=== PATIENT | female | born 1940 | race Caucasian/White ===

== ENCOUNTER 2018-03-12 20:39 | Inpatient (IN) | payer MEDICARE, OTHER ==
[~2018-03-12] VITALS: Ht 152.4 cm; Wt 80.1 kg
[2018-03-12] MEDS ORDERED: LEVOFLOXACIN 750MG 150 ML IV ONE (22:15)
[2018-03-12] MEDS ORDERED: methylPREDNISolone SOD SUCC 125 MG/2 ML VL IV ONE (22:15)
[2018-03-12] MEDS ORDERED: ALBUTEROL SULF 2.5 MG/0.5ML(0.5%) NEB SOLN NEB ONE (22:15)
[2018-03-12] MEDS ORDERED: IPRATROPIUM BROM 0.5 MG/2.5ML INH SOL NEB ONE (22:15)
[2018-03-12 22:36] LABS: Basophils # (auto) 0 uL; Basophils % (auto) 0.4 % (0.0-2.0); Eosinophils # (auto) 0.3 uL; Eosinophils % (auto) 4.1 % (0.0-7.0); Hematocrit 43.1 % (36.0-46.0); Hemoglobin 14.7 g/dL (12.2-16.2); Lymphocytes # (auto) 0.8 uL; Lymphocytes % (auto) 11.1 % (10.0-50.0); Mean Corpuscular Hemoglobin 32.8 pg (28.0-32.0); Mean Corpuscular Hgb Conc. 34.1 g/dL (32.0-36.0); Monocytes # (auto) 0.6 uL; Monocytes % (auto) 8.2 % (0.0-12.0); Neutrophils # (auto) 5.6 uL; Neutrophils % (auto) 76.2 % (37.0-80.0); Platelet Count (auto) 235 10^3/uL (140-450); Red Blood Cells 4.49 10^6/uL (4.0-5.20); Red Cell Distribution Width 13.3 % (11.8-14.3); White Blood Cell 7.3 10^3/uL (4.4-10.8)
[2018-03-12 22:41] LABS: INR 0.98 (0.9-1.15); Partial Thromboplastin Time 25.4 sec (22.64-33.71); Prothrombin Time 10.7 sec (9.37-12.3)
[2018-03-12 22:50] LABS: Alanine Aminotransferase 39 U/L (13-56); Albumin 3.9 g/dL (3.4-5.0); Alkaline Phosphatase 93 U/L (45-117); Anion Gap 14 (5-15); Aspartate Aminotransferase 29 U/L (15-37); BUN/Creatinine Ratio 10.9; Bilirubin, Total 0.2 mg/dL (0.2-1.0); Blood Urea Nitrogen 11 mg/dL (7-18); Carbon Dioxide 24 mmol/L (21-32); Chloride 105 mmol/L (98-107); GFR African American 69 mL/min; GFR Non-African American 57 mL/min; Glucose 148 mg/dL (74-106); Magnesium 2.4 mg/dL (1.6-2.6); Potassium 3.2 mmol/L (3.5-5.1); Sodium 143 mmol/L (136-145); Total Protein 7.6 g/dL (6.4-8.2)
[2018-03-12] MEDS ORDERED: ACETAMINOPHEN 325 MG TAB PO ONE (23:15)
[2018-03-13] VITALS (7 sets, daily range): BP systolic 97–121; BP diastolic 52–72
[2018-03-13] MEDS ORDERED: IPRATROPIUM BROM 0.5 MG/2.5ML INH SOL NEB ONE ×2 (02:15→02:30)
[2018-03-13] MEDS ORDERED: ALBUTEROL SULF 2.5 MG/0.5ML(0.5%) NEB SOLN NEB ONE ×2 (02:15→02:30)
[2018-03-13] MEDS ORDERED: FUROSEMIDE 20 MG/2 ML VIAL IV ONE (03:00)
[2018-03-13] MEDS ORDERED: MORPHINE SULFATE 4 MG/ML SYR/VIAL IV PRN (04:45)
[2018-03-13] MEDS ORDERED: NITROGLYCERIN 0.4 MG SL TAB SL PRN (04:45)
[2018-03-13] MEDS ORDERED: ONDANSETRON HCL 4 MG/2 ML VIAL IV PRN (04:45)
[2018-03-13] MEDS ORDERED: ACETAMINOPHEN 325 MG TAB PO PRN (04:45)
[2018-03-13] MEDS ORDERED: HYDROcodone-ACET 5/325MG TAB PO PRN (04:45)
[2018-03-13] MEDS ORDERED: TEMAZEPAM 15 MG CAP PO PRN (04:45)
[2018-03-13] MEDS: ALBUTEROL SULF 2.5 MG/0.5ML(0.5%) NEB SOLN NEB PRN ×2 (05:39→09:28)
[2018-03-13] MEDS: IPRATROPIUM BROM 0.5 MG/2.5ML INH SOL NEB PRN ×2 (05:39→09:28)
[2018-03-13] MEDS: PHENYTOIN SODIUM 100 MG CAP PO SCH ×2 (05:44→14:12)
[2018-03-13] MEDS ORDERED: POTASSIUM CHL 20 Meq TABLET PO ONE (07:45)
[2018-03-13] MEDS ORDERED: MONT10TA34 PO (08:07)
[2018-03-13] MEDS ORDERED: IPRA1SOL3 IN (08:07)
[2018-03-13] MEDS ORDERED: AMLO5TAB2 PO (08:07)
[2018-03-13] MEDS ORDERED: CETI1TAB36 PO (08:07)
[2018-03-13] MEDS ORDERED: PHE100C PO (08:07)
[2018-03-13] MEDS ORDERED: ATOR80TA PO (08:07)
[2018-03-13] MEDS ORDERED: ASPI81CH43 GT (08:07)
[2018-03-13] MEDS ORDERED: FLUT500M2 INH (08:07)
[2018-03-13 08:40] LABS: Urine Bacteria NONE SEEN /hpf (None Seen); Urine Blood Negative /uL (Negative); Urine Mucus FEW (None Seen); Urine Specific Gravity 1.015 (1.001-1.035); Urine WBC 22 /hpf (0 - 5)
[2018-03-13] MEDS: methylPREDNISolone SOD SUCC 125 MG/2 ML VL IV SCH ×2 (08:50→17:41)
[2018-03-13] MEDS ORDERED: cefTRIAXone 1GM/10ml IVPUSH 10 ML IV SCH (09:00)
[2018-03-13] MEDS ORDERED: VALSARTAN 80 MG TAB PO SCH (10:00)
[2018-03-13] MEDS ORDERED: methylPREDNISolone SOD SUCC 125 MG/2 ML VL IV SCH (10:00)
[2018-03-13] MEDS ORDERED: ENOXAPARIN SOD 40 MG/0.4 ML SYRINGE SC SCH (10:00)
[2018-03-13] MEDS ORDERED: AZITHROMYCIN 500MG/ 250ML 250 ML IV SCH (10:00)
[2018-03-13] MEDS ORDERED: amLODIPine BESYLATE 5 MG TAB PO SCH (10:00)
[2018-03-13] MEDS ORDERED: FAMOTIDINE 20 MG TAB PO SCH (10:00)
[2018-03-13] MEDS ORDERED: IPRATROPIUM BROM 0.5 MG/2.5ML INH SOL NEB SCH (14:00)
[2018-03-13] MEDS ORDERED: ALBUTEROL SULF 2.5 MG/0.5ML(0.5%) NEB SOLN NEB SCH (14:00)
[2018-03-13] MEDS ORDERED: MONTELUKAST SODIUM 10 MG TAB PO SCH (22:00)
[2018-03-13] MEDS ORDERED: ATORVASTATIN 20 MG TAB PO SCH (22:00)
[2018-03-14] MEDS ORDERED: cefTRIAXone 1GM/10ml IVPUSH 10 ML IV SCH (09:00)
== END 2018-03-13 19:25 | disposition short-term general hospital (02) | DRG 191 ==
LOC: EDBD 20:39 → ER 20:39 → TELE 20:40 → TELE-WESTW 03-13 06:00
PROVIDERS: ADMIT Nurse Practitioner; ATTEND Family Medicine
DX: J44.0 Chronic obstructive pulmonary disease with (acute) lower respiratory infection (principal); J80 Acute respiratory distress syndrome; R56.9 Unspecified convulsions; J44.1 Chronic obstructive pulmonary disease with (acute) exacerbation; E66.9 Obesity, unspecified; E78.5 Hyperlipidemia, unspecified; I10 Essential (primary) hypertension; J20.9 Acute bronchitis, unspecified
CPT/HCPCS: 36415; 71045; 80053; 81001; 83735; 83880; 84484; 85025; 85379; 85610; 85730; 87070; 87205; 93005; 94640; 94761; 96365; 96375; J1956